=== PATIENT | male | born 1980 | race American Indian/Alaskan Native ===

== ENCOUNTER 2017-11-06 20:42 | Emergency (ER) | payer BC ==
[2017-11-06] MEDS ORDERED: ZOFRAN ODT ONE (20:52)
[2017-11-06 21:24] LABS: Basophils % (Auto) 0.4 % (0.0-1.8); Eosinophils % (Auto) 0.4 % (0.0-4.3); Hematocrit 45.8 % (35.5-45.6); Hemoglobin 14.9 gm/dl (11.8-15.2); Lymphocytes # (Auto) 2.7 K/mm3 (1.2-5.4); Lymphocytes % (Auto) 22.3 % (13.4-35.0); Mean Corpuscular HGB Conc 33 % (32-34); Mean Corpuscular Hemoglobin 28 pg (28-32); Mean Corpuscular Volume 86 fl (84-94); Monocytes # (Auto) 0.8 K/mm3 (0.0-0.8); Monocytes % (Auto) 6.4 % (0.0-7.3); Platelet Count 237 K/mm3 (140-440); Red Cell Distribution Width 13.6 % (13.2-15.2)
[2017-11-06 21:41] LABS: BUN/Creatinine Ratio 11; Blood Urea Nitrogen 11 mg/dL (9-20); Calcium 9.4 mg/dL (8.4-10.2); Hemolysis Index 14; Lipase 149 units/L (13-60)
[2017-11-07] MEDS ORDERED: ZOFRAN ODT ONE (03:54)
[2017-11-07] MEDS ORDERED: ZOFRAN ODT PO ONE (03:59)
[2017-11-07] MEDS ORDERED: K-DUR PO ONE (06:14)
[2017-11-07] MEDS ORDERED: NACL 0.9% 1000 ML 1,000 ML IV ONE (06:32)
[2017-11-07] MEDS ORDERED: MORPHINE IV ONE (06:33)
--- NOTE | 2017-11-07 06:34 | Emergency Department Report ---
HPI - General Chief Complaint: Abdominal Pain Time Seen by Provider: 11/07/17 06:13 - HPI HPI: 37-year-old male presents to the emergency department yesterday , dropped off by his , with complaint of some mid abdominal pain, nausea, vomiting that had started the previous night after he ate dinner around 7 PM. It is a sharp intense pain, currently 10 out of 10 in intensity. No known aggravating or alleviating factors. He denies any past medical history. He did not take anything for symptoms presentation. His primary care physician is a Dr. Dacosta. No recent travel or sick contacts at home. ED Past Medical Hx - Past Medical History Previous Medical History?: No - Surgical History Past Surgical History?: No - Social History Smoking Status: Unknown if ever smoked Substance Use Type: Alcohol - Medications Home Medications: Home Medications Medication Instructions Recorded Confirmed Last Taken Type HYDROcodone/APAP 5-325 [[place] 1 each PO Q6HR PRN #10 tablet 11/07/17 Unknown Rx 5/325] Ondansetron [Zofran Odt] 4 mg PO Q8H PRN #10 tab.rapdis 11/07/17 Unknown Rx ED Review of Systems ROS: Stated complaint: ABDOMINAL PAIN Other details as noted in HPI Comment: All other systems reviewed and negative Constitutional: denies: chills, fever Eyes: denies: eye pain, eye discharge, vision change ENT: denies: ear pain, throat pain Respiratory: denies: cough, shortness of breath, wheezing Cardiovascular: denies: chest pain, palpitations Gastrointestinal: abdominal pain, nausea, vomiting Genitourinary: denies: urgency, dysuria Musculoskeletal: denies: back pain, joint swelling, arthralgia Skin: denies: rash, lesions Neurological: denies: headache, weakness, paresthesias Physical Exam - Physical Exam Vital Signs: Vital Signs 11/06/17 11/07/17 11/07/17 21:00 03:43 05:00 Temperature 98.1 F 97.7 F Pulse Rate 74 76 Respiratory 12 20 Rate Blood Pressure 147/74 138/87 137/70 O2 Sat by Pulse 100 100 Oximetry Physical Exam: GENERAL: The patient is well-developed well-nourished. HENT: Normocephalic. Atraumatic. Patient has moist mucous membranes. EYES: Extraocular motions are intact. Pupils equal reactive to light bilaterally. NECK: Supple. Trachea is midline. CHEST/LUNGS: Clear to auscultation. There is no respiratory distress noted. HEART/CARDIOVASCULAR: Regular. There is no tachycardia. There is no murmur. ABDOMEN: Abdomen is soft. There is some periumbilical abdominal pain to palpation. No guarding. Patient has normal bowel sounds. There is no abdominal distention. SKIN: There is no rash. There is no edema. There is no diaphoresis. NEURO: The patient is awake, alert, and oriented. The patient is cooperative. The patient has no focal neurologic deficits. The patient has normal speech. MUSCULOSKELETAL: There is no tenderness or deformity. There is no limitation range of motion. There is no evidence of acute injury. ED Course Vital Signs 11/06/17 11/07/17 11/07/17 21:00 03:43 05:00 Temperature 98.1 F 97.7 F Pulse Rate 74 76 Respiratory 12 20 Rate Blood Pressure 147/74 138/87 137/70 O2 Sat by Pulse 100 100 Oximetry ED Medical Decision Making - Lab Data Result diagrams: 11/06/17 21:14 11/06/17 21:14 - Radiology Data Radiology results: report reviewed EXAM: CT ABDOMEN PELVIS W CON HISTORY: Abd pain TECHNIQUE: Routine axial imaging was obtained of the abdomen and pelvis following the intravenous injection of 100 cc of Omnipaque 350. Delayed axial imaging was obtained of the kidneys ureters and bladder. Sagittal and coronal reconstructions were reviewed. FINDINGS: The lung bases are clear. Pleural fluid is not seen. The liver is normal size and reveals multiple small cysts in both hepatic lobes measuring up to 14 mm in diameter. The gallbladder and biliary tree appear normal. The pancreas, spleen, and adrenal glands appear normal. The kidneys enhance normally. There is no evidence of hydronephrosis. The vascular structures enhance normally. The stomach is distended with fluid. There is non specific radiopaque material in the stomach. The overall bowel loops are normal in caliber. The appendix is not enlarged. There is no evidence of free fluid or adenopathy. The prostate gland and bladder appear normal. The skeletal structures appear well maintained. IMPRESSION: Multiple benign-appearing cysts in the liver. Nonspecific distention of the stomach with fluid as described. No evidence of gastric outlet obstruction. No acute process in the abdomen and pelvis otherwise. Transcribed By: RB Dictated By: SHADY MACIAS MD Electronically Authenticated By: SHADY MACIAS MD Signed Date/Time: 11/07/17 0723 - Medical Decision Making Patient presents with some periumbilical abdominal pain and some nausea and vomiting. Labs are mostly unremarkable except for a very mild leukocytosis and a slightly elevated lipase. He was given some pain and nausea medication and IV fluid. CT scan did not show any acute process within the abdomen or pelvis. He was reevaluated multiple times for multiple hours and is feeling improved and able to keep down some water. He appears safe for discharge home at this time and will be given a referral for gastroenterology and encouraged to follow up with primary care. He will return to the ER with any worsening of his symptoms or any acute distress. - Differential Diagnosis pancreatitis, gastritis, food poisoning, viral syndrome Critical Care Time: No Critical care attestation.: If time is entered above; I have spent that time in minutes in the direct care of this critically ill patient, excluding procedure time. ED Disposition Clinical Impression: Abdominal pain Qualifiers: Abdominal location: periumbilical Qualified Code(s): R10.33 - Periumbilical pain Nausea & vomiting Qualifiers: Vomiting type: unspecified Vomiting Intractability: non-intractable Qualified Code(s): R11.2 - Nausea with vomiting, unspecified Disposition: DC-01 TO HOME OR SELFCARE Is pt being admited?: No Condition: Stable Instructions: Acute Nausea and Vomiting (ED), Abdominal Pain (ED) Additional Instructions: Please follow-up with your primary care physician in the next few days. I have given you a referral for a local rolloff truck driver, Dr. Patricia, whom is part of a larger GI group in order for you to follow up regarding your abdominal pain. Return to the emergency Department with any worsening of your symptoms or any acute distress. You have been prescribed a medication that is sedating and therefore should not be taken prior to driving, working, and responsible for children and in no way should be mixed with alcohol of any quantity. Prescriptions: HYDROcodone/APAP 5-325 [[place] 5/325] 1 each PO Q6HR PRN #10 tablet PRN Reason: Pain Ondansetron [Zofran Odt] 4 mg PO Q8H PRN #10 tab.rapdis PRN Reason: Nausea Referrals: PRIMARY CARE, [Primary Care Provider] - 3-5 Days COLEMAN PATRICIA MD [Staff Physician] - 3-5 Days Forms: Work/School Release Form(ED) Time of Disposition: 08:39
--- NOTE | 2017-11-07 07:28 | Cat Scan Report ---
FINAL REPORT EXAM: CT ABDOMEN PELVIS W CON HISTORY: Abd pain TECHNIQUE: Routine axial imaging was obtained of the abdomen and pelvis following the intravenous injection of 100 cc of Omnipaque 350. Delayed axial imaging was obtained of the kidneys ureters and bladder. Sagittal and coronal reconstructions were reviewed. FINDINGS: The lung bases are clear. Pleural fluid is not seen. The liver is normal size and reveals multiple small cysts in both hepatic lobes measuring up to 14 mm in diameter. The gallbladder and biliary tree appear normal. The pancreas, spleen, and adrenal glands appear normal. The kidneys enhance normally. There is no evidence of hydronephrosis. The vascular structures enhance normally. The stomach is distended with fluid. There is non specific radiopaque material in the stomach. The overall bowel loops are normal in caliber. The appendix is not enlarged. There is no evidence of free fluid or adenopathy. The prostate gland and bladder appear normal. The skeletal structures appear well maintained. IMPRESSION: Multiple benign-appearing cysts in the liver. Nonspecific distention of the stomach with fluid as described. No evidence of gastric outlet obstruction. No acute process in the abdomen and pelvis otherwise.
[2017-11-07 08:31] LABS: Bilirubin,Urine NEG (Negative); Blood,Urine NEG (Negative); Color,Urine Straw (Yellow); Mucus,Urine FEW /HPF; Protein,Urine <15 mg/dL mg/dL (Negative); Urobilinogen,Urine < 2.0 mg/dL (<2.0); WBC,Urine < 1.0 /HPF (0.0-6.0)
[2017-11-07 08:55] VITALS: BP 147/70
== END 2017-11-07 08:55 | disposition home or self-care (01) ==
LOC: ED 20:42
DX: R10.9 Unspecified abdominal pain (principal); R11.2 Nausea with vomiting, unspecified
CPT/HCPCS: 36415; 74177; 80048; 81001; 82150; 83690; 85025; 96361; 96374; 99284; J2270; J7030; Q9967; Q0162